=== PATIENT | male | born 1975 | race American Indian/Alaskan Native ===

== ENCOUNTER 2022-06-21 17:21 | Emergency (ER) | payer SELFPAY ==
[2022-06-22 03:32] LABS: Alanine Aminotransferase 25 units/L (7-56); Albumin 3.6 g/dL (3.9-5); Blood Urea Nitrogen 9 mg/dL (9-20); Calcium 8.7 mg/dL (8.4-10.2); Hemolysis Index 5
--- NOTE | 2022-06-22 03:49 | Vascular Lab Report ---
DUPLEX DOPPLER LOWER EXTREMITY VEINS, RIGHT INDICATION / CLINICAL INFORMATION: pain and swelling. TECHNIQUE: Duplex doppler imaging was performed through the veins of the right lower extremity using venous comp ression and other maneuvers. COMPARISON: None available. FINDINGS: RIGHT COMMON FEMORAL VEIN: Negative. RIGHT FEMORAL VEIN: Negative. RIGHT POPLITEAL VEIN: Negative. RIGHT CALF VEINS: Negative. ADDITIONAL FINDINGS: None. IMPRESSION: 1. No sonographic evidence for DVT in the right lower extremity. There is diffuse soft tissue edema a nd fluid within the lower leg and knee. Signer Name: Louie Alvarez MD Signed: 06/22/2022 3:45 AM Workstation Name: [id number]
[2022-06-22 03:55] LABS: BUN/Creatinine Ratio 13
[2022-06-22 04:18] LABS: INR 0.97 (0.87-1.13)
[2022-06-22 04:19] LABS: Hematocrit 39.8 % (35.5-45.6); Hemoglobin 12.5 gm/dl (11.8-15.2); Mean Corpuscular HGB Conc 32 % (32-34); Mean Corpuscular Volume 75 fl (84-94); Partial Thromboplastin Time 37.2 Sec. (24.2-36.6); Platelet Count 287 K/mm3 (140-440); Red Blood Count 5.32 M/mm3 (3.65-5.03); Red Cell Distribution Width 14.8 % (13.2-15.2)
[2022-06-22] MEDS ORDERED: SODIUM CHLORIDE 0.9% 1000 ML 1,000 ML IV ONE (05:11)
[2022-06-22] MEDS ORDERED: PIPERACILLIN/TAZOBACTAM 3.375 3.375 GM/50 ML BAG IV STA (05:13)
[2022-06-22 07:16] LABS: Band Neutrophils # (Manual) 0.3 K/mm3; Basophils % (Manual) 0 % (0.0-1.8); Eosinophils % (Manual) 0 % (0.0-4.3); Hypochromasia 1+; Platelet Estimate Consistent w Auto; Total Cells Counted 100
--- NOTE | 2022-06-22 07:20 | Cat Scan Report ---
CT lower extremity RT w con INDICATION / CLINICAL INFORMATION: thigh mass/swelling. TECHNIQUE: Axial coronal and sagittal images with contrast. 100 mL O[address] scans at this location a re performed using CT dose reduction for ALARA by means of automated exposure control. COMPARISON: None available. FINDINGS: Right femoral head is well-seated in the acetabulum. Femoral shaft appears intact. There is a small j oint effusion within the knee with mild subcutaneous edema in the soft tissues. Mild inflammation radha ma surrounding the femoral vessels. A baylee was not placed in the region of interest no well-defined n odular masses identified. IMPRESSION: 1. No acute fracture is seen. No bony irregularity. 2. No well-defined masses seen. If there is concern for thigh mass the best exam would be a MRI with contrast for further evaluation. A marker placed on sagittal images would also be helpful 3. There is a small amount of fluid with inflammatory change and irregularity in the distal anterior thigh just above the patella in the the region of the quadriceps tendon could represent small fluid c ollections/abscess collection. Findings a best seen on axial images measuring 2.7 x 0.3 cm.. Mild terrance rounding inflammation in the subcutaneous fat 4. Joint effusion Signer Name: Louie Alvarez MD Signed: 06/22/2022 7:15 AM Workstation Name: [id number]
--- NOTE | 2022-06-22 07:28 | Emergency Department Report ---
ED General Adult HPI - General Chief complaint: Extremity Problem,Nontraumatic Stated complaint: RT LEG HAS FLUID Time Seen by Provider: 06/22/22 00:48 Source: patient Mode of arrival: Ambulatory Limitations: No Limitations - Related Data Previous Rx's Medication Instructions Recorded Last Taken Type Albuterol Mdi (or & Nicu Only) 2 puff IH QID PRN #1 inhalation 08/10/14 Unknown Rx [ProAir HFA Inhaler] Promethazine /Codeine 5 ml PO Q6H PRN #120 ml 08/10/14 Unknown Rx [Phenergan/Codeine 6.25-10 mg/5 ml] Acetaminophen/Codeine [Tylenol #3] 1 tab PO Q6H PRN #15 tab 06/22/22 Unknown Rx Clindamycin [Clindamycin CAP] 300 mg PO Q6H #28 capsule 06/22/22 Unknown Rx Ketorolac [Toradol] 10 mg PO Q6H PRN #15 tablet 06/22/22 Unknown Rx Allergies Allergy/AdvReac Type Severity Reaction Status Date / Time No Known Allergies Allergy Verified 08/10/14 15:36 ED Review of Systems ROS: Stated complaint: RT LEG HAS FLUID Other details as noted in HPI Comment: All other systems reviewed and negative ED Past Medical Hx - Social History Smoking Status: Current Every Day Smoker Substance Use Type: Alcohol - Medications Home Medications: Home Medications Medication Instructions Recorded Confirmed Last Taken Type Albuterol Mdi (or & Nicu Only) 2 puff IH QID PRN #1 inhalation 08/10/14 Unknown Rx [ProAir HFA Inhaler] Promethazine /Codeine 5 ml PO Q6H PRN #120 ml 08/10/14 Unknown Rx [Phenergan/Codeine 6.25-10 mg/5 ml] Acetaminophen/Codeine [Tylenol #3] 1 tab PO Q6H PRN #15 tab 06/22/22 Unknown Rx Clindamycin [Clindamycin CAP] 300 mg PO Q6H #28 capsule 06/22/22 Unknown Rx Ketorolac [Toradol] 10 mg PO Q6H PRN #15 tablet 06/22/22 Unknown Rx ED Physical Exam - General Limitations: No Limitations General appearance: alert, in no apparent distress - Head Head exam: Present: atraumatic, normocephalic, normal inspection - Eye Eye exam: Present: normal appearance, PERRL, EOMI. Absent: scleral icterus, conjunctival injection Pupils: Present: normal accommodation - ENT ENT exam: Present: normal exam, mucous membranes moist - Neck Neck exam: Present: normal inspection - Respiratory Respiratory exam: Present: normal lung sounds bilaterally. Absent: respiratory distress, wheezes, rales, rhonchi, chest wall tenderness, accessory muscle use, decreased breath sounds - Cardiovascular Cardiovascular Exam: Present: regular rate, normal rhythm. Absent: systolic murmur, diastolic murmur, rubs, gallop - GI/Abdominal GI/Abdominal exam: Present: soft, normal bowel sounds - Rectal Rectal exam: Present: deferred - Extremities Exam Extremities exam: Present: normal inspection - Back Exam Back exam: Present: normal inspection - Neurological Exam Neurological exam: Present: alert, oriented X3 - Psychiatric Psychiatric exam: Present: normal affect, normal mood - Skin Skin exam: Present: warm, dry, intact, normal color. Absent: rash ED Course Vital Signs 06/21/22 19:28 Temperature 98.6 F Pulse Rate 74 Respiratory 18 Rate Blood Pressure 125/88 O2 Sat by Pulse 98 Oximetry - Consultations Consultation #1: 06/22/22 07:[address] Balderas who review the labs, scans, and findings. Plan to treat and discharge home with followup and return information. ED Medical Decision Making - Lab Data Result diagrams: 06/22/22 02:51 06/22/22 02:51 - Radiology Data Radiology results: report reviewed [address] [address] Vascular Lab Report Signed Patient: ROBERTO RIVERA MR#: [id number] : 1975 Acct:[id number] Age/Sex: 46 / M ADM Date: 06/21/22 Loc: ED Attending Dr: Ordering Physician: AMY BLACKMAN Date of Service: 06/22/22 Procedure(s): VL venous duplex LE RT Accession Number(s): [id number] cc: AMY BLACKMAN DUPLEX DOPPLER LOWER EXTREMITY VEINS, RIGHT INDICATION / CLINICAL INFORMATION: pain and swelling. TECHNIQUE: Duplex doppler imaging was performed through the veins of the right lower extremity using venous compression and other maneuvers. COMPARISON: None available. FINDINGS: RIGHT COMMON FEMORAL VEIN: Negative. RIGHT FEMORAL VEIN: Negative. RIGHT POPLITEAL VEIN: Negative. RIGHT CALF VEINS: Negative. ADDITIONAL FINDINGS: None. IMPRESSION: 1. No sonographic evidence for DVT in the right lower extremity. There is diffuse soft tissue edema and fluid within the lower leg and knee. Signer Name: Louie Alvarez MD Signed: 06/22/2022 3:45 AM Workstation Name: [id number] Transcribed By: CW Dictated By: DANNI ALVAREZ MD Electronically Authenticated By: DANNI ALVAREZ MD Signed Date/Time: 06/22/22344 DD/ 3 TD/TT: [facility] [address] [place] [address] Cat Scan Report Signed Patient: ROBERTO RIVERA MR#: [id number] : 1975 Acct:[id number] Age/Sex: 46 / M ADM Date: 06/21/22 Loc: ED Attending Dr: Ordering Physician: AMY BLACKMAN Date of Service: 06/22/22 Procedure(s): CT lower extremity RT w con Accession Number(s): [id number] cc: MAY BLACKMAN CT lower extremity RT w con INDICATION / CLINICAL INFORMATION: thigh mass/swelling. TECHNIQUE: Axial coronal and sagittal images with contrast. 100 mL Omnip[address] scans at this location are performed using CT dose reduction for ALARA by means of automated exposure control. COMPARISON: None available. FINDINGS: Right femoral head is well-seated in the acetabulum. Femoral shaft appears intact. There is a small joint effusion within the knee with mild subcutaneous edema in the soft tissues. Mild inflammation edema surrounding the femoral vessels. A baylee was not placed in the region of interest no well- defined nodular masses identified. IMPRESSION: 1. No acute fracture is seen. No bony irregularity. 2. No well-defined masses seen. If there is concern for thigh mass the best exam would be a MRI with contrast for further evaluation. A marker placed on sagittal images would also be helpful 3. There is a small amount of fluid with inflammatory change and irregularity in the distal anterior thigh just above the patella in the the region of the quadriceps tendon could represent small fluid collections/abscess collection. Findings a best seen on axial images measuring 2.7 x 0.3 cm.. Mild surrounding inflammation in the subcutaneous fat 4. Joint effusion Signer Name: Louie Alvarez MD Signed: 06/22/2022 7:15 AM Workstation Name: [id number] Transcribed By: TACO Dictated By: DANNI ALVAREZ MD Electronically Authenticated By: DANNI ALVAREZ MD Signed Date/Time: 06/22/22714 DD/ 8 TD/TT: Critical care attestation.: If time is entered above; I have spent that time in minutes in the direct care of this critically ill patient, excluding procedure time. ED Disposition Clinical Impression: Cellulitis of leg, right Disposition: 01 HOME / SELF CARE / HOMELESS Is pt being admited?: No Does the pt Need Aspirin: No Condition: Stable Instructions: Cellulitis, Adult Additional Instructions: Please return to the ER if you develop fever, worsening swelling or redness, worsening pain, dizziness, sweats, or inability to tolerate medications. It is m ost important to follow up with ENT Prescriptions: Clindamycin [Clindamycin CAP] 300 mg PO Q6H #28 capsule Ketorolac [Toradol] 10 mg PO Q6H PRN #15 tablet PRN Reason: Pain Acetaminophen/Codeine [Tylenol #3] 1 tab PO Q6H PRN #15 tab PRN Reason: Pain Referrals: CELESTE MENDEZ MD [Staff Physician] - 3-5 Days Forms: Work/School Release Form(ED)
[2022-06-22] MEDS ORDERED: KETOROLAC 30 MG/1 ML INJ IV STA (07:35)
[2022-06-22 08:08] VITALS: BP 122/70
== END 2022-06-22 07:59 | disposition home or self-care (01) ==
LOC: ED 17:21
DX: L03.115 Cellulitis of right lower limb (principal); F17.200 Nicotine dependence, unspecified, uncomplicated
CPT/HCPCS: 36415; 73701; 80053; 85007; 85025; 85610; 85730; 93971; 96365; 96375; 99284; J1885; J2543; J7030; Q9967